=== PATIENT | female | born 1985 | race African-American/Black ===

== ENCOUNTER 2018-11-01 15:43 | Emergency (ER) | payer OTHER, SELFPAY ==
--- NOTE | 2018-11-01 16:31 | RAD REPORT ---
EXAM DESCRIPTION: CT - Head Brain Wo Cont - 11/01/2018 4:21 pm CLINICAL HISTORY: Headache, hypertension history COMPARISON: None. TECHNIQUE: Axial 5 mm thick images of the head were obtained without IV contrast. All CT scans are performed using dose optimization technique as appropriate and may include automated exposure control or mA/KV adjustment according to patient size. FINDINGS: No intracranial hemorrhage, mass, edema or shift of mid-line structures. No acute infarcti on changes seen. No abnormal extra-axial fluid collections. Ventricles are normal. Mastoid air cells and visualized portions of the paranasal sinuses are clear. No acute bony findings. IMPRESSION: Negative non-contrast CT head examination.
[2018-11-01 17:05] LABS: Absolute Lymphocytes (CBC) 1.8 K/uL (0.7-4.9); Absolute Monocytes 0.4 K/uL (0.1-1.3); Absolute Neutrophil 3.9 K/uL (1.8-8.0); Basophils % 0.6 % (0-1.3); Eosinophils % 8.4 % (0-4.4); Hematocrit 40.1 % (36.0-45.0); Lymphocytes % 27.2 % (15.3-44.8); MPV 7.9 fL (7.6-11.3); Monocytes % 6.6 % (3.3-12.3); RBC Red Blood Cell Count 4.87 M/uL (3.86-4.86)
--- NOTE | 2018-11-01 17:22 | RAD REPORT ---
EXAM DESCRIPTION: RAD - Chest Single View - 11/01/2018 4:47 pm CLINICAL HISTORY: Chest pain COMPARISON: None. TECHNIQUE: AP portable chest image was obtained 1714 hours . FINDINGS: Lungs are clear. Cardiomegaly is present without vascular engorgement. Trachea is midline. No measurable pleural effusion and no pneumothorax. No acute bony abnormality seen. No acute aortic findings suspected. IMPRESSION: Cardiomegaly without failure or volume overload findings. No acute lung parenchymal process.
[2018-11-01 17:25] LABS: ALT/SGPT 13 U/L (12-78); AST/SGOT 13 U/L (15-37); Albumin 3.9 g/dL (3.4-5.0); Alkaline Phosphatase 69 U/L (45-117); BUN Blood Urea Nitrogen 10 mg/dL (7-18); Bicarbonate 26 mmol/L (21-32); Bilirubin Direct 0.1 mg/dL (0-0.2); Bilirubin Total 0.4 mg/dL (0.2-1.0); Glucose Level 85 mg/dL (74-106); Potassium 3.8 mmol/L (3.5-5.1); Protein, Total 7.7 g/dL (6.4-8.2); Sodium Level 139 mmol/L (136-145); Troponin (Emerg Dept Use Only) < 0.02 ng/mL (0.0-0.045)
[2018-11-01 17:52] LABS: Urine Appearance CLEAR; Urine Bilirubin NEGATIVE (NEG); Urine Blood NEGATIVE (NEG); Urine Color YELLOW; Urine Glucose NEGATIVE (NEG); Urine Protein 1+ (NEG)
[2018-11-01 17:54] LABS: Urine Microscopic Reflex ORDER UMIC
[2018-11-01] MEDS ORDERED: KETOROLAC 30 MG/ML INJ ONE (18:01)
[2018-11-01] MEDS ORDERED: DIPHENHYDRAMINE 50 MG/ML VIAL ONE (18:01)
[2018-11-01] MEDS ORDERED: METOCLOPRAMIDE 10 MG/2mL INJ ONE (18:01)
[2018-11-01] MEDS ORDERED: NA CHLORIDE 0.9% 1,000 ML ONE (18:01)
[2018-11-01 18:11] LABS: Urine Bacteria 20-50 /HPF (<20); Urine RBC NONE SEEN /HPF (NONE SEEN)
[2018-11-01 18:12] LABS: Urine Culture Reflex Order REFLEXED
--- NOTE | 2018-11-01 18:22 | EDPHYS ---
Physician Documentation [facility] Name: Yahir Angel Age: 32 yrs Sex: Female : 1985 Arrival Date: 11/01/2018 Time: 15:47 Bed 16 Private MD: None, None ED Physician Roshan Davis HPI: 11/01 16:52 This 32 yrs old Black Female presents to ER via Ambulatory with complaints of Headache, pm1 High Blood Pressure, Chest Pain. 16:52 The patient complains of pain to the left side of head. The patient describes the pm1 headache as aching. Onset: The symptoms/episode began/occurred last night. Associated signs and symptoms: Pertinent positives: nausea, Pertinent negatives: altered mental status, dizziness, fever, neck stiffness, paresthesias, Photophobia rash, sinus congestion, sinus tenderness, vision changes. Severity of symptoms: in the emergency department the pain is unchanged, despite home interventions. Headache History: The patient has had previous headaches and this one is similar to previous episodes. The symptoms are alleviated by nothing. the symptoms are aggravated by Anger, stress, and elevated blood pressure. The patient has experienced similar episodes in the past, a few times. The patient has not recently seen a physician. Patient with headache and chest pain last night. Patient noticed that her blood pressure was elevated with her pain. Chest pain has improved to 2/10 and is reproduced with raising hier arms above her head. Patient currently taking labetalol for her blood pressure and it was switched from lisinopril-HCTZ due to her desire to get . 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 - Social history:: Smoking status: Patient/guardian denies using tobacco, Patient/guardian denies using alcohol. - Ebola Screening: : Patient negative for fever greater than or equal to 101.5 degrees Fahrenheit, and additional compatible Ebola Virus Disease symptoms Patient denies exposure to infectious person Patient denies travel to an Ebola-affected area in the 21 days before illness onset. ROS: 16:55 Constitutional: Negative for fever, chills, and weight loss, Eyes: Negative for injury, pm1 pain, redness, and discharge, ENT: Negative for injury, pain, and discharge, Neck: Negative for injury, pain, and swelling. 16:55 Respiratory: Negative for shortness of breath, cough, wheezing, and pleuritic chest pain, Back: Negative for injury and pain, : Negative for injury, bleeding, discharge, and swelling, MS/Extremity: Negative for injury and deformity, Skin: Negative for injury, rash, and discoloration. 16:55 Cardiovascular: Positive for chest pain, Negative for edema, orthopnea, palpitations. 16:55 Abdomen/GI: Positive for nausea, Negative for abdominal pain, vomiting, diarrhea. 16:55 Neuro: Positive for headache, Negative for dizziness, numbness, tingling. Exam: 16:55 Constitutional: This is a well developed, well nourished patient who is awake, alert, pm1 and in no acute distress. Head/Face: Normocephalic, atraumatic. Eyes: Pupils equal round and reactive to light, extra-ocular motions intact. Lids and lashes normal. Conjunctiva and sclera are non-icteric and not injected. Cornea within normal limits. Periorbital areas with no swelling, redness, or edema. ENT: Nares patent. No nasal discharge, no septal abnormalities noted. Tympanic membranes are normal and external auditory canals are clear. Oropharynx with no redness, swelling, or masses, exudates, or evidence of obstruction, uvula midline. Mucous membranes moist. Neck: Trachea midline, no thyromegaly or masses palpated, and no cervical lymphadenopathy. Supple, full range of motion without nuchal rigidity, or vertebral point tenderness. No Meningismus. Cardiovascular: Regular rate and rhythm with a normal S1 and S2. No gallops, murmurs, or rubs. Normal PMI, no JVD. No pulse deficits. Respiratory: Lungs have equal breath sounds bilaterally, clear to auscultation and percussion. No rales, rhonchi or wheezes noted. No increased work of breathing, no retractions or nasal flaring. Abdomen/GI: Soft, non-tender, with normal bowel sounds. No distension or tympany. No guarding or rebound. No evidence of tenderness throughout. Back: No spinal tenderness. No costovertebral tenderness. Full range of motion. Skin: Warm, dry with normal turgor. Normal color with no rashes, no lesions, and no evidence of cellulitis. MS/ Extremity: Pulses equal, no cyanosis. Neurovascular intact. Full, normal range of motion. 16:55 Chest/axilla: Inspection: normal, Palpation: tenderness, of the anterior aspect of left upper chest, that totally reproduces the patient's complaints, Pain also reproduced totally with moving left and right arms above her head. Vital Signs: 15:51 BP 151 / 118; Pulse 104; Resp 18; Temp 98.3(O); Pulse Ox 100% on R/A; Weight 90.72 kg; hj Height 5 ft. 4 in. (162.56 cm); Pain 2/10; 18:15 BP 172 / 122; Pulse 70; Resp 16 S; Pulse Ox 100% on R/A; jl7 19:07 BP 160 / 116; Pulse 68; Resp 16 S; Pulse Ox 99% on R/A; jl7 19:10 BP 166 / 103; Pulse 65; Resp 17; Temp 98.3; Pulse Ox 99% on R/A; Pain 0/10; rr5 19:28 BP 160 / 103; Pulse 66; Resp 17; Pulse Ox 99% ; rr5 15:51 Body Mass Index 34.33 (90.72 kg, 162.56 cm) hj 19:28 BP informed.ED provider ordered for discharge. rr5 MDM: 15:59 Patient medically screened. pm1 18:18 Data reviewed: vital signs. Data interpreted: Pulse oximetry: on room air is 100 %. pm1 Interpretation: normal. Counseling: I had a detailed discussion with the patient and/or guardian regarding: the historical points, exam findings, and any diagnostic results supporting the discharge/admit diagnosis, lab results, radiology results, the need for outpatient follow up, to return to the emergency department if symptoms worsen or persist or if there are any questions or concerns that arise at home. 18:18 ED course: Patient with 5 pills of her blood pressure medication remaining without pm1 refills. Requested refill. Will refill and informed patient to follow u with PCP for further management of hypertension. 18:18 Medication response: headache resolved. pm1 11/01 16:09 Order name: Basic Metabolic Panel; Complete Time: 17:26 pm1 11/01 16:09 Order name: CBC with Diff; Complete Time: 17:35 pm1 11/01 16:09 Order name: LFT's; Complete Time: 17:26 pm1 11/01 16:09 Order name: Troponin (emerg Dept Use Only); Complete Time: 17:26 pm1 11/01 17:40 Order name: UA; Complete Time: 18:15 jl7 11/01 17:52 Order name: Test, Urine; Complete Time: 18:15 EDMS 11/01 16:09 Order name: XRAY Chest (1 view); Complete Time: 17:26 pm1 11/01 16:09 Order name: CT Head Brain wo Cont; Complete Time: 16:44 pm1 11/01 17:56 Order name: Urine Microscopic Only; Complete Time: 18:15 EDMS 11/01 18:14 Order name: Urine Culture EDMS 11/01 15:53 Order name: EKG; Complete Time: 15:54 hj 11/01 16:09 Order name: Cardiac monitoring; Complete Time: 17:37 pm1 11/01 16:09 Order name: IV Saline Lock; Complete Time: 17:36 pm1 11/01 16:09 Order name: Labs collected and sent; Complete Time: 17:36 pm1 11/01 16:09 Order name: O2 Per Protocol; Complete Time: 17:36 pm1 11/01 16:09 Order name: O2 Sat Monitoring; Complete Time: 17:36 pm1 11/01 16:09 Order name: Urine Dipstick-Ancillary (obtain specimen); Complete Time: 18:30 pm1 11/01 16:09 Order name: Urine Test (obtain specimen); Complete Time: 18:29 pm1 Administered Medications: 07:45 Drug: NS 0.9% 1000 ml Route: IV; Rate: 1000 ml; Site: right antecubital; jl7 19:30 Follow up: Response: No adverse reaction; IV Status: Order to discontinue infusion rr5 17:47 Drug: Benadryl 25 mg Route: IVP; Site: right antecubital; jl7 18:29 Follow up: Response: No adverse reaction jl7 17:49 Drug: Reglan 10 mg Route: IVP; Site: right antecubital; jl7 18:29 Follow up: Response: No adverse reaction 7 17:55 Drug: TORadol 30 mg Route: IVP; Site: right antecubital; 7 18:25 Follow up: Response: No adverse reaction; Pain is decreased 7 Disposition: 11/02 09:39 Co-signature as Attending Physician, Roshan Davis MD I agree with the assessment and kdr plan of care. Disposition: 11/01/18 18:22 Discharged to Home. Impression: Headache, Essential (primary) hypertension, Chest pain, unspecified. - Condition is Stable. - Discharge Instructions: Nonspecific Chest Pain, General Headache Without Cause, Hypertension, How to Take Your Blood Pressure, [id number], DASH Eating Plan, Managing Your Hypertension. - Prescriptions for labetalol 200 mg Oral tablet - take 1 tablet by ORAL route 2 times per day; 20 tablet. - Medication Reconciliation Form, Thank You Letter, Antibiotic Education, Prescription Opioid Use form. - Follow up: Emergency Department; When: As needed; Reason: Worsening of condition. Follow up: Private Physician; When: 2 - 3 days; Reason: Recheck today's complaints, Continuance of care, Re-evaluation by your physician. - Problem is new. - Symptoms have improved. Signatures: Dispatcher [employer] EDMS Roshan Davis MD MD [facility] Luis Murry RN RN hj Neo Singh NP MARTIAL ARTS INSTRUCTOR pm1 Weston Matta RN RN jl7 Jef Love RN RN rr5 Corrections: (The following items were deleted from the chart) 11/01 19:40 18:22 11/01/2018 18:22 Discharged to Home. Impression: Headache; Essential (primary) rr5 hypertension; Chest pain, unspecified. Condition is Stable. Forms are Medication Reconciliation Form, Thank You Letter, Antibiotic Education, Prescription Opioid Use. Follow up: Emergency Department; When: As needed; Reason: Worsening of condition. Follow up: Private Physician; When: 2 - 3 days; Reason: Recheck today's complaints, Continuance of care, Re-evaluation by your physician. Problem is new. Symptoms have improved. pm1
--- NOTE | 2018-11-01 18:22 | ER ---
Nurse's Notes [facility] Name: Yahir Angel Age: 32 yrs Sex: Female : 1985 Arrival Date: 11/01/2018 Time: 15:47 Bed 16 Private MD: None, None Diagnosis: Headache;Essential (primary) hypertension;Chest pain, unspecified Presentation: 11/01 15:48 Presenting complaint: Patient states: my head is killing me right now, my chest is hj hurting last night; denies radiating pain; pain in head 10/10; reports nausea, denies vomiting; denies SOB;. Transition of care: patient was not received from another setting of care. Onset of symptoms was November 01, 2018. Risk Assessment: Do you want to hurt yourself or someone else? Patient reports no desire to harm self or others. Initial Sepsis Screen: Does the patient meet any 2 criteria? No. Patient's initial sepsis screen is negative. Does the patient have a suspected source of infection? No. Patient's initial sepsis screen is negative. Care prior to arrival: None. 15:48 Method Of Arrival: Ambulatory 15:48 Acuity: CHRISTIN 3 hj Triage Assessment: 15:51 Headache History: Denies prior headaches. General: Appears in no apparent distress. hj uncomfortable, Behavior is calm, cooperative, appropriate for age. Pain: Complains of pain in head. chest Pain currently is 2 out of 10 on a pain scale. Pain began 1 day ago. Also complains of. Neuro: Level of Consciousness is awake, alert, obeys commands, Oriented to person, place, time, situation, Appropriate for age. 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 - Social history:: Smoking status: Patient/guardian denies using tobacco, Patient/guardian denies using alcohol. - Ebola Screening: : Patient negative for fever greater than or equal to 101.5 degrees Fahrenheit, and additional compatible Ebola Virus Disease symptoms Patient denies exposure to infectious person Patient denies travel to an Ebola-affected area in the 21 days before illness onset. Screenin:51 Abuse screen: Denies threats or abuse. Denies injuries from another. Nutritional hj screening: No deficits noted. Tuberculosis screening: No symptoms or risk factors identified. Fall Risk None identified. Assessment: 17:00 General: Appears in no apparent distress. uncomfortable, Behavior is calm, cooperative, jl7 appropriate for age. Pain: Complains of pain in left side of head Pain currently is 8 out of 10 on a pain scale. Is continuous. Neuro: Level of Consciousness is awake, alert, obeys commands, Oriented to person, place, time, situation. Cardiovascular: Heart tones S1 S2 present Patient's skin is warm and dry. Respiratory: Airway is patent Respiratory effort is even, unlabored, Respiratory pattern is regular, symmetrical. GI: No signs and/or symptoms were reported involving the gastrointestinal system. : No signs and/or symptoms were reported regarding the genitourinary system. EENT: No signs and/or symptoms were reported regarding the EENT system. Derm: Skin is dry, Skin is normal, Skin temperature is warm. 18:00 Reassessment: Patient appears in no apparent distress at this time. No changes from jl7 previously documented assessment. Patient and/or family updated on plan of care and expected duration. Pain level reassessed. Patient is alert, oriented x 3, equal unlabored respirations, skin warm/dry/pink. 18:26 Reassessment: Patient states feeling better. Patient states symptoms have improved. jl7 18:30 Reassessment: Reassessment: ERP notified of BP, ordered for pt to take home BP jl7 medication. Pt took 200 mg Labetalol PO at this time. 19:10 Reassessment: ERP notified of BP, ordered to continue monitoring pt's BP. jl7 19:11 General: Appears in no apparent distress. uncomfortable, Behavior is calm, cooperative, rr5 appropriate for age. Pain: Denies pain. 19:11 Neuro: Level of Consciousness is awake, alert, obeys commands, Oriented to person, rr5 place, time, situation. Cardiovascular: Capillary refill < 3 seconds Patient's skin is warm and dry. Respiratory: Airway is patent Respiratory effort is even, unlabored, Respiratory pattern is regular, symmetrical. GI: No signs and/or symptoms were reported involving the gastrointestinal system. : No signs and/or symptoms were reported regarding the genitourinary system. EENT: No signs and/or symptoms were reported regarding the EENT system. Derm: Skin is dry, Skin is pink, warm \T\ dry. normal. Musculoskeletal: Capillary refill < 3 seconds, Range of motion: intact in all extremities. Vital Signs: 15:51 BP 151 / 118; Pulse 104; Resp 18; Temp 98.3(O); Pulse Ox 100% on R/A; Weight 90.72 kg; hj Height 5 ft. 4 in. (162.56 cm); Pain 2/10; 18:15 BP 172 / 122; Pulse 70; Resp 16 S; Pulse Ox 100% on R/A; jl7 19:07 BP 160 / 116; Pulse 68; Resp 16 S; Pulse Ox 99% on R/A; jl7 19:10 BP 166 / 103; Pulse 65; Resp 17; Temp 98.3; Pulse Ox 99% on R/A; Pain 0/10; rr5 19:28 BP 160 / 103; Pulse 66; Resp 17; Pulse Ox 99% ; rr5 15:51 Body Mass Index 34.33 (90.72 kg, 162.56 cm) hj 19:28 BP informed.ED provider ordered for discharge. rr5 ED Course: 15:47 Patient arrived in ED. mr 15:47 None, None is Private Physician. mr 15:50 Triage completed. hj 15:51 Arm band placed on left wrist. hj 15:54 Patient has correct armband on for positive identification. Placed in gown. Bed in low hj position. Call light in reach. Side rails up X 1. Adult w/ patient. 15:59 Neo Singh NP is PHCP. pm1 15:59 Roshan Davis MD is Attending Physician. pm1 16:08 EKG done, by communications technologist. reviewed by Roshan Davis MD. sm3 16:[address] via wheelchair. jg6 16:20 CT completed. Patient tolerated procedure well. Patient moved back from CT. jg6 16:21 CT Head Brain wo Cont In Process Unspecified. EDMS 16:47 XRAY Chest (1 view) In Process Unspecified. EDMS 17:00 No provider procedures requiring assistance completed. Initial lab(s) drawn, by carli zapata sent to lab. Inserted saline lock: 22 gauge in right antecubital area, using aseptic technique. Blood collected. 17:36 Weston Matta RN is Primary Nurse. jl7 19:11 Primary Nurse role handed off by Weston Matta RN jl7 19:19 Jef Love, PEGGY is Primary Nurse. rr5 19:29 IV discontinued, intact, bleeding controlled, No redness/swelling at site. Pressure rr5 dressing applied. Administered Medications: 07:45 Drug: NS 0.9% 1000 ml Route: IV; Rate: 1000 ml; Site: right antecubital; jl7 19:30 Follow up: Response: No adverse reaction; IV Status: Order to discontinue infusion rr5 17:47 Drug: Benadryl 25 mg Route: IVP; Site: right antecubital; jl7 18:29 Follow up: Response: No adverse reaction jl7 17:49 Drug: Reglan 10 mg Route: IVP; Site: right antecubital; jl7 18:29 Follow up: Response: No adverse reaction jl7 17:55 Drug: TORadol 30 mg Route: IVP; Site: right antecubital; jl7 18:25 Follow up: Response: No adverse reaction; Pain is decreased jl7 Outcome: 18:22 Discharge ordered by MD. pm1 19:29 Discharged to home ambulatory. rr5 19:29 Condition: stable 19:29 Discharge instructions given to patient, Instructed on discharge instructions, follow up and referral plans. medication usage, Demonstrated understanding of instructions, follow-up care, medications. 19:40 Patient left the ED. rr5 Addendum: 11/04/2018 08:36 Addendum: Culture Results: Positive urine culture. No further action required. Other: s s Okay per Gabrielle Britton NP as patient has no urinary complaints. Signatures: Dispatcher [employer] [facility] Sis Perez Vanda Lowe, Luis Beck RN, RN RN hj Marinas, Patrick, BUDDY DIRECTOR OF FUNDRAISING pm1 Weston Matta RN RN jl7 Anny White 3 Gisel Davila 6 Jef Love, RN RN rr5 Corrections: (The following items were deleted from the chart) 11/01 15:53 15:51 Pulse 104bpm; Resp 18bpm; Pulse Ox 100% RA; Temp 98.3F Oral; 90.72 kg; Height 5 hj ft. 4 in.; BMI: 34.3; Pain /10; hj 15:54 15:51 Pulse 104bpm; Resp 18bpm; Pulse Ox 100% RA; Temp 98.3F Oral; 90.72 kg; Height 5 hj ft. 4 in.; BMI: 34.3; Pain 12/17; hj
[2018-11-01] MEDS ORDERED: cloNIDine HCl 0.1 MG TAB ONE (18:32)
--- NOTE | 2018-11-02 06:29 | EKG ---
Test Date: 2018-11-01 Test Time: 15:53:44 Wrapping Machine Operator: JUDIE MEASUREMENT RESULTS: Intervals: Rate: 90 [place]: 134 QRSD: 92 QT: 342 QTc: 418 [place]: P: 59 [place]: 134 QRS: 57 T: 31 INTERPRETIVE STATEMENTS: Normal sinus rhythm Biatrial enlargement Abnormal ECG No previous ECG available for comparison Electronically Signed On 11-02-18 06:28:31 CARTRIDGE LOADER by Obdulio Mcclellan
== END 2018-11-01 19:40 | disposition home or self-care (01) ==
LOC: ER 15:43
DX: I10 Essential (primary) hypertension (principal); R07.9 Chest pain, unspecified; E78.5 Hyperlipidemia, unspecified
CPT/HCPCS: 36415; 70450; 71045; 80048; 80076; 81003; 81015; 81025; 84484; 85025; 87077; 87086; 87088; 87186; 93005; 96361; 96374; 96375; 99284; J2765; J7030

== ENCOUNTER 2022-10-20 07:26 | Emergency (ER) | payer OTHER, SELFPAY ==
--- OUTSIDE RECORDS SUMMARY | 2022-10-20 07:29 | XMS REPORT | Continuity of Care Document ---
:1985 Author Organization [facility] t Address [address] [place] [address] Care Team Providers Name Role Phone PCP, PATIENT DOES NOT HAVE A Primary Care Physician Unavaila DENEEN Rosa Attending Clinician Unavailable AMIRAH PEREIRA Attending Clinician Unavailable Payers Payer Name Policy Type Policy Number Effective Date Expiration Date S jorge CIG[employer]-CIGNA/PPO 2 [id number] 2021 00:00:00 Problems This patient has no known problems. Allergies, Adverse Reactions, Alerts Allergy Allergy Status Severity Reaction(s) Onset Inactive Treating Comm ents Source Name Type Date Date Clinician NO KNOWN Drug Active [facility] Medications This patient has no known medications. Procedures This patient has no known procedures. Encounters Start End Encounter Admission Attending Care Care Encounter Source Date/Time Date/Time Type Type Clinicians Facility Department ID 2022-11-09 2022-11-09 Outpatient Erin SMITH [facility] [id number] [facility] 09:00:00 09:00:00 DENEEN ceballos [facility] 2021-08-06 2021-08-06 Outpatient MARCIO PEREIRA [id number] [place] 11:30:00 11:30:00 AMIRAH nava 2021-07-31 2021-07-31 Outpatient MARCIO PEREIRA [id number] [place] 11:30:00 11:30:00 AMIRAH nava Results This patient has no known results.
[2022-10-20 08:01] LABS: Urine Blood Trace-lysed (Negative); Urine Glucose Negative (Negative); Urine Protein Negative (Negative); Urine pH 5.5 (5.0-7.0)
[2022-10-20 08:38] LABS: Absolute Lymphocytes (CBC) 2.3 K/uL (0.7-4.9); Hematocrit 38.9 % (36.0-45.0); Lymphocytes % 36.1 % (15.3-44.8); MCV 82.4 fL (80-100); MPV 7.7 fL (7.6-11.3); RBC Red Blood Cell Count 4.72 M/uL (3.86-4.86)
[2022-10-20] MEDS ORDERED: AMLODIPINE 5 MG TAB ONE (08:39)
[2022-10-20 08:44] LABS: Protime INR 0.99
--- NOTE | 2022-10-20 08:47 | RAD REPORT ---
EXAM DESCRIPTION: RAD - Chest Single View - 10/20/2022 8:05 am CLINICAL HISTORY: Cough Chest pain. COMPARISON: Chest Single View dated 11/01/2018 FINDINGS: Portable technique limits examination quality. The lungs are grossly clear. The heart is upper limit of normal in size. No displaced fractures. IMPRESSION: No acute intrathoracic process suspected.
[2022-10-20 08:57] LABS: ALT/SGPT 17 U/L (13-56); AST/SGOT 16 U/L (15-37); Albumin 3.8 g/dL (3.4-5.0); Alkaline Phosphatase 79 U/L (45-117); BUN Blood Urea Nitrogen 10 mg/dL (7-18); Bicarbonate 28 mmol/L (21-32); Bilirubin Direct < 0.1 mg/dL (0-0.2); Bilirubin Total 0.2 mg/dL (0.2-1.0); Glomerular Filtration Rate 85 ml/min (=/>90); Glucose Level 100 mg/dL (74-106); Magnesium 1.9 mg/dL (1.6-2.4); NT PRO-BNP 23 pg/mL (<125); Potassium 3.6 mmol/L (3.5-5.1); Protein, Total 7.9 g/dL (6.4-8.2); Sodium Level 137 mmol/L (136-145); Troponin High Sensitivity 6.7 pg/mL (<58.9)
--- NOTE | 2022-10-20 09:08 | EDPHYS ---
Physician Documentation [facility] – [place], [place] Name: Yahir Angel Age: 36 yrs Sex: Female : 1985 Arrival Date: 10/20/2022 Time: 07:27 Bed 16 Private MD: KAILA Physician Bill Santamaria HPI: 10/20 08:40 This 36 yrs old Black Female presents to ER via Ambulatory with complaints of Blood thony Pressure Problem. 08:40 bp high, taking meds sporadically. Onset: The symptoms/episode began/occurred 2 week(s) thony ago. Severity of symptoms: At their worst the symptoms were mild in the emergency department the symptoms are unchanged. The patient has not experienced similar symptoms in the past. 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 - Social history:: Smoking status: Reported history of juuling and/or vaping. ROS: 08:43 Constitutional: Negative for fever, chills, and weight loss, Eyes: Negative for injury, thony pain, redness, and discharge, ENT: Negative for injury, pain, and discharge, Neck: Negative for injury, pain, and swelling, Cardiovascular: Negative for chest pain, palpitations, and edema, Respiratory: Negative for shortness of breath, cough, wheezing, and pleuritic chest pain, Abdomen/GI: Negative for abdominal pain, nausea, vomiting, diarrhea, and constipation, Back: Negative for injury and pain, : Negative for injury, bleeding, discharge, and swelling, MS/Extremity: Negative for injury and deformity, Skin: Negative for injury, rash, and discoloration, Neuro: Negative for headache, weakness, numbness, tingling, and seizure, Psych: Negative for depression, anxiety, suicide ideation, homicidal ideation, and hallucinations, Allergy/Immunology: Negative for hives, rash, and allergies, Endocrine: Negative for neck swelling, polydipsia, polyuria, polyphagia, and marked weight changes, Hematologic/Lymphatic: Negative for swollen nodes, abnormal bleeding, and unusual bruising. Exam: 08:43 Constitutional: This is a well developed, well nourished patient who is awake, alert, thony and in no acute distress. Head/Face: Normocephalic, atraumatic. Eyes: Pupils equal round and reactive to light, extra-ocular motions intact. Lids and lashes normal. Conjunctiva and sclera are non-icteric and not injected. Cornea within normal limits. Periorbital areas with no swelling, redness, or edema. ENT: Nares patent. No nasal discharge, no septal abnormalities noted. Tympanic membranes are normal and external auditory canals are clear. Oropharynx with no redness, swelling, or masses, exudates, or evidence of obstruction, uvula midline. Mucous membranes moist. Neck: Trachea midline, no thyromegaly or masses palpated, and no cervical lymphadenopathy. Supple, full range of motion without nuchal rigidity, or vertebral point tenderness. No Meningismus. Chest/axilla: Normal chest wall appearance and motion. Nontender with no deformity. No lesions are appreciated. Cardiovascular: Regular rate and rhythm with a normal S1 and S2. No gallops, murmurs, or rubs. Normal PMI, no JVD. No pulse deficits. Respiratory: Lungs have equal breath sounds bilaterally, clear to auscultation and percussion. No rales, rhonchi or wheezes noted. No increased work of breathing, no retractions or nasal flaring. Abdomen/GI: Soft, non-tender, with normal bowel sounds. No distension or tympany. No guarding or rebound. No evidence of tenderness throughout. Back: No spinal tenderness. No costovertebral tenderness. Full range of motion. Skin: Warm, dry with normal turgor. Normal color with no rashes, no lesions, and no evidence of cellulitis. MS/ Extremity: Pulses equal, no cyanosis. Neurovascular intact. Full, normal range of motion. Neuro: Awake and alert, GCS 15, oriented to person, place, time, and situation. Cranial nerves II-XII grossly intact. Motor strength 5/5 in all extremities. Sensory grossly intact. Cerebellar exam normal. Normal gait. Psych: Awake, alert, with orientation to person, place and time. Behavior, mood, and affect are within normal limits. 08:43 ECG was reviewed by the Attending Physician. Vital Signs: 07:41 BP 183 / 129; Pulse 66; Resp 16; Temp 98.6(O); Pulse Ox 100% on R/A; Weight 99.79 kg; ss Height 5 ft. 4 in. (162.56 cm); 08:59 BP 175 / 104 RA; Pulse 65; Resp 17; Pulse Ox 100% on R/A; ap3 09:24 BP 169 / 102; Pulse 67; Pulse Ox 100% on R/A; ap3 07:41 Body Mass Index 37.76 (99.79 kg, 162.56 cm) ss MDM: 07:40 Patient medically screened. [facility] 08:45 Data reviewed: vital signs, nurses notes, EMS record, lab test result(s), EKG, thony radiologic studies, plain films. Data interpreted: sulfide head operator: rate is 66 beats/min, rhythm is regular, Pulse oximetry: on room air is 100 %. Test interpretation: by ED physician or midlevel provider: ECG, plain radiologic studies. 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 10/20 07:46 Order name: Basic Metabolic Panel; Complete Time: 08:59 [facility] 10/20 07:46 Order name: CBC with Diff; Complete Time: 08:59 [facility] 10/20 07:46 Order name: LFT's; Complete Time: 08:59 [facility] 10/20 07:46 Order name: Magnesium; Complete Time: 08:59 [facility] 10/20 07:46 Order name: NT PRO-BNP; Complete Time: 08:59 [facility] 10/20 07:46 Order name: PT-INR; Complete Time: 08:59 [facility] 10/20 07:46 Order name: Troponin HS; Complete Time: 08:59 [facility] 10/20 07:46 Order name: XRAY Chest (1 view); Complete Time: 08:59 [facility] 10/20 07:46 Order name: EKG; Complete Time: 07:47 [facility] 10/20 07:46 Order name: Cardiac monitoring; Complete Time: 08:43 [facility] 10/20 08:02 Order name: Urine Dipstick-Ancillary; Complete Time: 08:59 EDMS 10/20 08:04 Order name: Urine --Ancillary (enter results) bd 10/20 07:46 Order name: EKG - Nurse/Tech; Complete Time: 07:55 [facility] 10/20 07:46 Order name: IV Saline Lock; Complete Time: 08:43 [facility] 10/20 07:46 Order name: Labs collected and sent; Complete Time: 08:43 [facility] 10/20 07:46 Order name: O2 Per Protocol; Complete Time: 08:43 [facility] 10/20 07:46 Order name: O2 Sat Monitoring; Complete Time: 08:43 [facility] 10/20 07:46 Order name: Urine Dipstick-Ancillary (obtain specimen); Complete Time: 08:04 thony EC:43 Rate is 30 beats/min. Rhythm is regular. QRS [place] is Normal. [place] interval is normal. QRS thony interval is normal. QT interval is normal. No Q waves. T waves are Normal. No ST changes noted. Clinical impression: NSR w/ Non-specific ST/T Changes, LVH, and No evidence of ischemia. Interpreted by me. Reviewed by me. Administered Medications: 09:05 Drug: Norvasc (amlodipine) 5 mg Route: PO; ap3 09:24 Follow up: Response: No adverse reaction ap3 09:24 Drug: Hydrochlorothiazide 25 mg Route: PO; ap3 09:37 Follow up: Response: No adverse reaction ap3 Disposition Summary: 10/20/22 09:07 Discharge Ordered Location: Home thony Problem: new thony Symptoms: have improved thony Condition: Stable thony Diagnosis - Essential (primary) hypertension thony Followup: thony - With: Private Physician - When: 2 - 3 days - Reason: Recheck today's complaints, Re-evaluation by your physician Followup: thony - With: - When: 2 - 3 days - Reason: Recheck today's complaints, Continuance of care, Re-evaluation by your physician Discharge Instructions: - Discharge Summary Sheet thony - Potassium Content of Foods thony - Hypertension, Adult thony - Hypertension, Adult, [id number] thony - How to Take Your Blood Pressure, [id number] thony - Managing Your Hypertension thony Forms: - Medication Reconciliation Form thony - Thank You Letter thony - Antibiotic Education thony - Prescription Opioid Use thony - Work release form am2 Prescriptions: - Norvasc 10 mg Oral Tablet - take 1 tablet by ORAL route once daily; 30 tablet; Refills: 0, Product thony Selection Permitted - Lisinopril 20 mg Oral Tablet - take 1 tablet by ORAL route once daily; 20 tablet; Refills: 0, Product thony Selection Permitted - Hydrochlorothiazide 12.5 mg Oral Tablet - take 1 tablet by ORAL route once daily; 30 tablet; Refills: 0, Product thony Selection Permitted - Potassium Chloride 20 meq Oral Packet - take 1 packet by ORAL route once daily 1 packet in 6 (six) ounces of water or thony juice; Take after meal; 30 packet; Refills: 0, Product Selection Permitted Signatures: Dispatcher [employer] Bill Waddell MD MD cha Smirch, Shelby, RN RN ss Beverly Case RN RN ap3
--- NOTE | 2022-10-20 09:08 | ER ---
Nurse's Notes [facility] Name: Yahir Angel Age: 36 yrs Sex: Female : 1985 Arrival Date: 10/20/2022 Time: 07:27 Bed 16 Private MD: Diagnosis: Essential (primary) hypertension Presentation: 10/20 07:41 Chief complaint: Patient states: High blood pressure that patient noticed yesterday. Pt ss reports that she takes 3 different blood pressure medications, but it does not seem to be helping. Coronavirus screen: Client denies travel out of the [place] in the last 14 days. Ebola Screen: Patient denies exposure to infectious person. Patient denies travel to an Ebola-affected area in the 21 days before illness onset. Initial Sepsis Screen: Does the patient meet any 2 criteria? No. Patient's initial sepsis screen is negative. Does the patient have a suspected source of infection? No. Patient's initial sepsis screen is negative. Risk Assessment: Do you want to hurt yourself or someone else? Patient reports no desire to harm self or others. Onset of symptoms is unknown. 07:41 Method Of Arrival: Ambulatory ss 07:41 Acuity: CHRISTIN 2 ss Triage Assessment: 09:04 General: Appears in no apparent distress. Behavior is calm, cooperative. General: ap3 Reports feeling "off" the last few days. Pain: Denies pain. Neuro: Level of Consciousness is awake, alert, obeys commands, Oriented to person, place, time, situation, Gait is steady, Speech is normal. Cardiovascular: Patient's skin is warm and dry. Respiratory: Airway is patent Respiratory effort is even, unlabored, Respiratory pattern is regular, symmetrical. 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 - Social history:: Smoking status: Reported history of juuling and/or vaping. Screenin:04 [facility] ED Fall Risk Assessment (Adult) History of falling in the last 3 months, ap3 including since admission No falls in past 3 months (0 pts) Confusion or Disorientation No (0 pts) Intoxicated or Sedated No (0 pts) Impaired Gait No (0 pts) Mobility Assist Device Used No (0 pt) Altered Elimination No (0 pt) Score/Fall Risk Level 0 - 2 = Low Risk Oriented to surroundings, Maintained a safe environment, Educated pt \\T\\ family on fall prevention, incl call for assistance when getting out of bed, Assessed \\T\\ reinforced patient's understanding of fall precautions, Provided non-skid footwear, Hourly rounding (assess needs \\T\\ fall precautionary measures) done, Used ambulatory aids as needed (educated on \\T\\ assisted with). Abuse screen: Denies threats or abuse. Nutritional screening: No deficits noted. Tuberculosis screening: No symptoms or risk factors identified. Fall Risk No fall in past 12 months (0 pts). 09:07 Humpty Dumpty Scale Fall Assessment Tool (age< 18yrs) Age 13 years and above (1 pt) ap3 Gender Female (1 pt). Vital Signs: 07:41 BP 183 / 129; Pulse 66; Resp 16; Temp 98.6(O); Pulse Ox 100% on R/A; Weight 99.79 kg; ss Height 5 ft. 4 in. (162.56 cm); 08:59 BP 175 / 104 RA; Pulse 65; Resp 17; Pulse Ox 100% on R/A; ap3 09:24 BP 169 / 102; Pulse 67; Pulse Ox 100% on R/A; ap3 07:41 Body Mass Index 37.76 (99.79 kg, 162.56 cm) ED Course: 07:27 Patient arrived in ED. am2 07:40 Bill Santamaria MD is Attending Physician. [facility] 07:43 Triage completed. 07:43 Arm band placed on right wrist. 07:55 EKG done, by ED staff, reviewed by Bill Santamaria MD. em1 08:05 X-ray completed. Portable x-ray completed in exam room. md2 08:06 XRAY Chest (1 view) In Process Unspecified. EDMS 08:43 Inserted saline lock: 20 gauge in left antecubital area, using aseptic technique. Blood ap3 collected. 08:59 Beverly Case, RN is Primary Nurse. ap3 09:05 Patient has correct armband on for positive identification. Bed in low position. Call ap3 light in reach. Side rails up X 1. Adult w/ patient. personnel monitor on. Pulse ox on. NIBP on. Door closed. Noise minimized. 09:07 Melvin Price MD is Referral Physician. [facility] 09:49 No provider procedures requiring assistance completed. IV discontinued, intact, ap3 bleeding controlled, No redness/swelling at site. Pressure dressing applied. Administered Medications: 09:05 Drug: Norvasc (amlodipine) 5 mg Route: PO; ap3 09:24 Follow up: Response: No adverse reaction ap3 09:24 Drug: Hydrochlorothiazide 25 mg Route: PO; ap3 09:37 Follow up: Response: No adverse reaction ap3 Medication: 09:06 VIS not applicable for this client. ap3 Outcome: 09:07 Discharge ordered by . [facility] 09:49 Discharged to home ambulatory. ap3 09:49 Condition: good 09:49 Discharge instructions given to patient, Instructed on discharge instructions, follow up and referral plans. medication usage, Demonstrated understanding of instructions, follow-up care, medications, Prescriptions given X 4. 09:54 Patient left the ED. ap3 Signatures: Dispatcher [employer] EDBill Jones MD MD cha Martinez, Eric em1 Vanda Avitia RN RN ss Moreno, Amanda am2 Beverly Case RN RN ap3 Jil Mccain md2
[2022-10-20] MEDS ORDERED: hydroCHLOROthiazide 25 MG TAB ONE (09:15)
[2022-10-20 10:20] VITALS: TEMP 98.6; O2SAT 100
[2022-10-20 10:22] VITALS: BP 169/102
--- NOTE | 2022-10-21 08:06 | EKG ---
Test Date: 2022-10-20 Test Time: 07:52:59 Sliver Cutter: BERNICE MEASUREMENT RESULTS: Intervals: Rate: 60 DE: 148 QRSD: 90 QT: 392 QTc: 392 [place]: P: 45 DE: 148 QRS: 25 T: 34 INTERPRETIVE STATEMENTS: Normal sinus rhythm Minimal voltage criteria for LVH, may be normal variant Borderline ECG No previous ECG available for comparison Electronically Signed On 10-21-22 08:02:04 BLANKBOOK FORWARDER by Melvin Price
== END 2022-10-20 09:54 | disposition home or self-care (01) ==
LOC: ER 07:26
DX: I10 Essential (primary) hypertension (principal); E78.5 Hyperlipidemia, unspecified
CPT/HCPCS: 36415; 71045; 80048; 80076; 81003; 81025; 83735; 83880; 84484; 85025; 85610; 93005; 99284

== ENCOUNTER 2024-06-26 08:09 | Inpatient (IN) | payer OTHER ==
[2024-06-26 08:37] LABS: Absolute Basophils 0.1 K/uL (0-0.5); Absolute Eosinophils 0.7 K/uL (0-0.5); Absolute Lymphocytes (CBC) 2.7 K/uL (0.7-4.9); Absolute Monocytes 0.4 K/uL (0.1-1.3); Absolute Neutrophil 3.9 K/uL (1.8-8.0); Basophils % 0.9 % (0-1.3); Eosinophils % 8.4 % (0-4.4); Hematocrit 41.6 % (36.0-45.0); Hemoglobin 13.7 g/dL (12.0-15.0); Lymphocytes % 34.9 % (15.3-44.8); MCH 27.4 pg (27.0-35.0); MCHC 32.9 g/dL (32.0-36.0); MCV 83.4 fL (80-100); MPV 7.5 fL (7.6-11.3); Monocytes % 5.6 % (3.3-12.3); Neutrophils % 50.2 % (41.7-73.7); Nucleated Red Blood Cells % 0.2 % (0-0); Platelets 347 thou/uL (152-406); RBC Red Blood Cell Count 4.98 M/uL (3.86-4.86); Red Cell Distribution Width 14.3 % (12.1-15.2)
[2024-06-26 08:53] LABS: Specific Gravity 1.009 (1.005-1.030)
[2024-06-26 08:55] LABS: Specific Gravity 1.009 (1.005-1.030); Sqamous Epithelial None Seen /HPF (None Seen); Urine Bacteria None Seen /HPF (<20); Urine Bilirubin NEGATIVE (Negative); Urine Blood Negative (Negative); Urine Clarity Clear (Clear); Urine Color Colorless (Yellow); Urine Culture Reflex Order NOT NEEDED; Urine Glucose NEGATIVE (Negative); Urine Ketones NEGATIVE (Negative); Urine Microscopic Reflex YN ORDER UMIC; Urine Mucus Slight /HPF (None Seen); Urine Nitrite NEGATIVE (Negative); Urine Protein NEGATIVE (Negative); Urine RBC <5 /HPF (None Seen); Urine Urobilinogen Normal (Normal); Urine WBC <5 /HPF (<5); Urine pH 7.5 (5.0-7.0)
[2024-06-26 09:03] LABS: ALT/SGPT 18 U/L (13-56); AST/SGOT 19 U/L (15-37); Albumin 3.9 g/dL (3.4-5.0); Albumin/Globulin Ratio 0.9 (1.1-1.8); Alkaline Phosphatase 85 U/L (45-117); Anion Gap 8.5 mEq/L (5.0-15.0); BUN Blood Urea Nitrogen 11 mg/dL (7-18); Bicarbonate 26 mEq/L (21-32); Bilirubin Total 0.4 mg/dL (0.2-1.0); Globulin 4.3 g/dL (2.3-3.5); Glomerular Filtration Rate 60 ml/min (=/>90); Glucose Level 105 mg/dL (74-106); NT PRO-BNP 120 pg/mL (<125); Potassium 3.5 mEq/L (3.5-5.1); Protein, Total 8.2 g/dL (6.4-8.2); Sodium Level 138 mEq/L (136-145); Troponin High Sensitivity 9.4 pg/mL (<58.9)
[2024-06-26] MEDS ORDERED: cloNIDine HCL 0.1 MG TAB ONE (09:04)
[2024-06-26 09:05] LABS: Bilirubin Direct < 0.2 mg/dL (0-0.2); Bilirubin Indirect, Calculated 0.2 mg/dL (0.2-0.8)
--- NOTE | 2024-06-26 09:09 | RAD REPORT ---
EXAM DESCRIPTION: RAD - Chest Single View - 06/26/2024 8:57 am CLINICAL HISTORY: CHEST PAIN Chest pain. COMPARISON: Chest Single View dated 10/20/2022; Chest Single View dated 11/01/2018 FINDINGS: Portable technique limits examination quality. The lungs are grossly clear. The heart is upper limit of normal in size. No displaced fractures. IMPRESSION: No acute intrathoracic process suspected.
--- NOTE | 2024-06-26 09:24 | RAD REPORT ---
EXAM DESCRIPTION: CT - Head Brain Wo Cont - 06/26/2024 9:12 am CLINICAL HISTORY: headache, HTN COMPARISON: Head Brain Wo Cont dated 11/01/2018 TECHNIQUE: All CT scans are performed using dose optimization technique as appropriate and may inclu de automated exposure control or mA/KV adjustment according to patient size. FINDINGS: No intracranial hemorrhage, hydrocephalus or extra-axial fluid collection.No areas of brai n edema or evidence of midline shift. The paranasal sinuses and mastoids are clear. The calvarium is intact. IMPRESSION: No acute intracranial abnormality.
--- NOTE | 2024-06-26 11:14 | ER ---
Nurse's Notes [facility] Name: Yahir Angel Age: 38 yrs Sex: Female : 1985 Arrival Date: 06/26/2024 Time: 08:09 Bed 3 Private MD: Diagnosis: Hypertensive emergency;Dizziness and giddiness Presentation: 06/26 08:28 Chief complaint: Patient states: Elevated BP, CONTRERAS, chest pressure all weekend. + ll1 dizziness. Coronavirus screen: Client denies travel out of the [place] in the last 14 days. At this time, the client does not indicate any symptoms associated with coronavirus-19. Ebola Screen: Patient denies travel to an Ebola-affected area in the 21 days before illness onset. Initial Sepsis Screen: Does the patient meet any 2 criteria? No. Patient's initial sepsis screen is negative. Does the patient have a suspected source of infection? No. Patient's initial sepsis screen is negative. Risk Assessment: Do you want to hurt yourself or someone else? Patient reports no desire to harm self or others. Onset of symptoms was June 22, 2024. 08:28 Method Of Arrival: Ambulatory ll1 08:28 Acuity: CHRISTIN 2 ll1 Triage Assessment: 08:28 General: Appears uncomfortable, Behavior is calm, cooperative, appropriate for age. ll1 General: Reports chills for feeling ill for fatigue for. Pain: Denies pain. Neuro: Reports headache. Respiratory: Reports pain with respiration. 10:14 Headache History: The patient has had previous headaches and this one is similar to ap3 previous episodes. Pain: Pain Pain began gradually. 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 - Infectious Disease History:: Denies. - Social history:: Smoking status: Patient denies any tobacco usage or history of. Screenin:33 Abuse screen: Denies threats or abuse. Nutritional screening: No deficits noted. ap3 Tuberculosis screening: No symptoms or risk factors identified. 10:13 [facility] ED Fall Risk Assessment (Adult) History of falling in the last 3 months, ap3 including since admission Yes- single mechanical fall (1 pt) Confusion or Disorientation No (0 pts) Intoxicated or Sedated No (0 pts) Impaired Gait No (0 pts) Mobility Assist Device Used No (0 pt) Altered Elimination No (0 pt) Score/Fall Risk Level 0 - 2 = Low Risk Oriented to surroundings, Maintained a safe environment, Educated pt \T\ family on fall prevention, incl call for assistance when getting out of bed, Assessed \T\ reinforced patient's understanding of fall precautions, Hourly rounding (assess needs \T\ fall precautionary measures) done, Used ambulatory aids as needed (educated on \T\ assisted with), Used gait belt as appropriate. Assessment: 08:32 General: Appears in no apparent distress. Behavior is cooperative. Pain: Complains of ap3 pain in chest Quality of pain is described as pressure. Neuro: Level of Consciousness is awake, alert, obeys commands, Oriented to person, place, time, situation, Appropriate for age Gait is steady, Speech is normal. Cardiovascular: Patient's skin is warm and dry. Cardiovascular: Reports chest pain. Respiratory: Airway is patent Respiratory effort is even, unlabored, Respiratory pattern is regular, symmetrical. Derm: patient sweating on forehead and reporting hotflashes at this time. 14:08 Reassessment: report faxed. ap3 Vital Signs: 08:28 BP 259 / 134; Pulse 66; Resp 18; Temp 98; Pulse Ox 98% on R/A; Weight 90.72 kg; Height ll1 5 ft. 4 in. ; Pain 4/10; 08:50 BP 231 / 133; Pulse 64; Pulse Ox 97% on R/A; ap3 08:53 BP 202 / 132; Pulse 60; Resp 18; Pulse Ox 97% on R/A; ap3 09:23 BP 207 / 125; Pulse 58; Pulse Ox 97% on R/A; ap3 10:14 BP 204 / 134; Pulse 55; Pulse Ox 97% on R/A; ap3 10:40 BP 197 / 124; Pulse 56; Pulse Ox 96% on R/A; ap3 11:59 BP 143 / 99; Pulse 67; Pulse Ox 100% ; ap3 08:28 Body Mass Index 34.33 (90.72 kg, 162.56 cm) ll1 08:28 Pain Scale: Adult ll1 [place] Coma Score: 11:01 Eye Response: spontaneous(4). Motor Response: obeys commands(6). Verbal Response: rn oriented(5). Total: 15. ED Course: 08:13 Patient arrived in ED. ra3 08:16 Neri Mata MD is Attending Physician. rn 08:27 Arm band placed on Patient placed in an exam room, on a stretcher. ll1 08:30 Triage completed. ll1 08:31 Beverly Case, RN is Primary Nurse. ap3 08:31 Initial lab(s) drawn, by me, sent to lab. Inserted saline lock: 22 gauge in right ap3 antecubital area, using aseptic technique. Blood collected. 08:32 Basic Metabolic Panel Sent. ap3 08:32 CBC with Diff Sent. ap3 08:32 LFT's Sent. ap3 08:32 NT PRO-BNP Sent. ap3 08:32 Troponin HS Sent. ap3 08:33 Patient has correct armband on for positive identification. Bed in low position. Call ap3 light in reach. Side rails up X 1. Client placed on continuous cardiac and pulse oximetry monitoring. NIBP monitoring applied. set off press operator on. Pulse ox on. NIBP on. 08:59 XRAY Chest (1 view) In Process Unspecified. EDMS 09:14 CT Head Brain wo Cont In Process Unspecified. EDMS 11:13 Joseph Villalta MD is Hospitalizing Provider. rn Administered Medications: 09:18 Drug: cloNIDine PO 0.2 mg PO once Route: PO; ap3 11:46 Follow up: Response: No adverse reaction; No change in condition tm6 11:26 Drug: hydrALAZINE IVP 10 mg IVP once Route: IVP; Site: right antecubital; tm6 11:47 Follow up: Response: No adverse reaction; No change in condition tm6 Medication: 10:14 VIS not applicable for this client. ap3 Outcome: 11:13 Decision to Hospitalize by Provider. rn 15:09 Patient left the ED. tm6 Signatures: Dispatcher [employer] EDMS Neri Mata MD MD rn Prokisch, Amanda RN RN ap3 Blanca Gonzalez RN RN ll1 Rod Nur RN RN tm6 Loli Cuellar ra3 Corrections: (The following items were deleted from the chart) 14:14 14:14 Reassessment: report faxed ap3 ap3
--- NOTE | 2024-06-26 11:14 | EDPHYS ---
Physician Documentation [facility] Name: Yahir Angel Age: 38 yrs Sex: Female : 1985 Arrival Date: 06/26/2024 Time: 08:09 Bed 3 Private MD: ED Physician Neri Mata HPI: 06/26 08:48 This 38 yrs old Black Female presents to ER via Ambulatory with complaints of Blood rn Pressure Problem, Headache, Chest Pain. 08:48 The patient complains of pain to the forehead, left mormonism and left temporal area. rn Onset: The symptoms/episode began/occurred 2 week(s) ago. Associated signs and symptoms: Pertinent positives: dizziness, blurred vision, Pertinent negatives: altered mental status, neck stiffness, vomiting. 09:00 Severity of symptoms: At its worst the pain was mild, in the emergency department the rn pain has improved. 38-year-old female with past medical history of hypertension presents to the emergency department complaining of high blood pressure, headache, chest pain. Patient states that she has had left frontal and left temporal headache rated as a 7/10 pain for the past 2 weeks and that she began developing episodic squeezing chest pains Tuesday that improved some over the weekend and is currently described as a mild nonradiating discomfort rated as 4/10 pain. This morning she began experiencing dizziness and blurry vision which prompted her to come to the emergency department. Patient reports her average blood pressure at home is usually about 160/90 and that she is currently taking labetalol, chlorthalidone, and losartan although she admits that she does not take the losartan as prescribed due to side effects of nausea. Patient reports she had a normal stress test last year. Denies shortness of breath, neck pain, back pain, nausea, vomiting.. 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 - Infectious Disease History:: Denies. - Social history:: Smoking status: Patient denies any tobacco usage or history of. ROS: 09:07 Constitutional: Negative for fever, chills, and weight loss, rn 09:07 Constitutional: Positive for Diaphoresis, 09:07 Eyes: Positive for blurry vision, Negative for discharge, itching, photophobia, tearing, 09:07 ENT: Negative for rhinorrhea, sinus congestion, sore throat, difficulty swallowing, 09:07 Neck: Negative for pain with movement, stiffness, 09:07 Cardiovascular: Positive for chest pain, of the chest, Negative for edema, orthopnea, palpitations, 09:07 Respiratory: Negative for cough, hemoptysis, shortness of breath, 09:07 Abdomen/GI: Negative for nausea, vomiting, diarrhea, black/tarry stool, rectal bleeding, 09:07 Back: Negative for radiated pain, 09:07 : Negative for urinary symptoms, hematuria, 09:07 MS/extremity: Negative for paresthesias, swelling, tingling, 09:07 Neuro: Positive for dizziness, headache, visual changes, Negative for altered mental status, gait disturbance, numbness, speech changes, syncope, tingling, weakness, 09:07 All other systems are negative, Exam: 11:01 Constitutional: This is a well developed, well nourished patient who is awake, alert, rn and in no acute distress. Head/Face: Normocephalic, atraumatic. Cardiovascular: Bradycardic, regular. No pulse deficits. Respiratory: No increased work of breathing, no retractions or nasal flaring. Abdomen/GI: Soft, non-tender MS/ Extremity: Pulses equal, no cyanosis. Neuro: Awake and alert, GCS 15, dizzy when standing, equal strength and sensation. 13:57 ECG was reviewed by the Attending Physician. rn Vital Signs: 08:28 BP 259 / 134; Pulse 66; Resp 18; Temp 98; Pulse Ox 98% on R/A; Weight 90.72 kg; Height ll1 5 ft. 4 in. ; Pain 4/10; 08:50 BP 231 / 133; Pulse 64; Pulse Ox 97% on R/A; ap3 08:53 BP 202 / 132; Pulse 60; Resp 18; Pulse Ox 97% on R/A; ap3 09:23 BP 207 / 125; Pulse 58; Pulse Ox 97% on R/A; ap3 10:14 BP 204 / 134; Pulse 55; Pulse Ox 97% on R/A; ap3 10:40 BP 197 / 124; Pulse 56; Pulse Ox 96% on R/A; ap3 11:59 BP 143 / 99; Pulse 67; Pulse Ox 100% ; ap3 08:28 Body Mass Index 34.33 (90.72 kg, 162.56 cm) ll1 08:28 Pain Scale: Adult ll1 [place] Coma Score: 11:01 Eye Response: spontaneous(4). Motor Response: obeys commands(6). Verbal Response: rn oriented(5). Total: 15. MDM: 08:16 Patient medically screened. rn 11:01 Differential diagnosis: hypertensive headache, intracerebral hemorrhage, neoplasm, rn subarachnoid bleed, tension headache, vasomotor headache. Data reviewed: vital signs, nurses notes, lab test result(s), EKG, radiologic studies, CT scan, and as a result, I will admit patient. Consideration of Admission/Observation Patient was admitted/placed on observation. Escalation of care including admission/observation considered. Counseling: I had a detailed discussion with the patient and/or guardian regarding the historical points, exam findings, and any diagnostic results supporting the discharge/admit diagnosis, lab results, radiology results, the need for further work-up and treatment in the hospital. Response to treatment: the patient's symptoms have mildly improved after treatment. ED course: Patient still extremely hypertensive, patient feels better but still dizzy with trouble walking especially when she stands up. Will admit to hospitalist service.. 11:15 ED course: I personally spent 35 minutes engaged in work directly related to the rn individual patient's care. This does not include any time spent performing procedures. The patient has been deemed critically ill because of malignant hypertension with hypertensive emergency requiring oral and IV antihypertensives.. 06/26 08:17 Order name: Basic Metabolic Panel; Complete Time: 09: rn 06/26 08:17 Order name: CBC with Diff; Complete Time: 08:52 rn 06/26 08:17 Order name: LFT's; Complete Time: : rn 06/26 08:17 Order name: NT PRO-BNP; Complete Time: : rn 06/26 08:17 Order name: Troponin HS; Complete Time: : rn 06/26 08:17 Order name: Test, Urine; Complete Time: 08:58 rn 06/26 08:17 Order name: Urinalysis w/ reflexes; Complete Time: 08:58 rn 06/26 13:54 Order name: T4 Free EDMS 06/26 13:54 Order name: Thyroid Stimulating Hormone EDMS 06/26 13:54 Order name: Basic Metabolic Panel EDMS 06/26 13:54 Order name: Basic Metabolic Panel EDMS 06/26 13:54 Order name: Basic Metabolic Panel EDMS 06/26 13:54 Order name: Basic Metabolic Panel EDMS 06/26 13:54 Order name: Basic Metabolic Panel EDMS 06/26 13:54 Order name: Basic Metabolic Panel EDMS 06/26 13:54 Order name: CBC with Automated Diff EDMS 06/26 13:54 Order name: CBC with Automated Diff EDMS 06/26 13:54 Order name: CBC with Automated Diff EDMS 06/26 13:55 Order name: CBC with Automated Diff EDMS 06/26 13:55 Order name: CBC with Automated Diff EDMS 06/26 13:55 Order name: CBC with Automated Diff EDMS 06/26 13:55 Order name: Lipid Profile EDMS 06/26 13:55 Order name: Lipid Profile EDMS 06/26 13:55 Order name: Magnesium EDMS 06/26 13:55 Order name: Magnesium EDMS 06/26 13:55 Order name: Magnesium EDMS 06/26 13:55 Order name: Magnesium EDMS 06/26 13:55 Order name: Magnesium EDMS 06/26 13:55 Order name: Magnesium EDMS 06/26 13:55 Order name: Phosphorus EDMS 06/26 13:55 Order name: Phosphorus EDMS 06/26 13:55 Order name: Phosphorus EDMS 06/26 13:55 Order name: Phosphorus EDMS 06/26 13:55 Order name: Phosphorus EDMS 06/26 13:55 Order name: Phosphorus EDMS 06/26 08:17 Order name: XRAY Chest (1 view); Complete Time: 09:26 rn 06/26 08:52 Order name: CT Head Brain wo Cont; Complete Time: 09:26 rn 06/26 08:17 Order name: EKG; Complete Time: 08:18 rn 06/26 08:17 Order name: Cardiac monitoring; Complete Time: 08:32 rn 06/26 08:17 Order name: EKG - Nurse/Tech; Complete Time: 08:36 rn 06/26 08:17 Order name: IV Saline Lock; Complete Time: 08:32 rn 06/26 08:17 Order name: Labs collected and sent; Complete Time: 08:32 rn 06/26 08:17 Order name: O2 Per Protocol; Complete Time: 08:32 rn 06/26 08:17 Order name: O2 Sat Monitoring; Complete Time: : rn EC:57 Rate is 62 beats/min. Rhythm is regular. QRS [place] is Normal. OR interval is normal. QRS rn interval is normal. QT interval is normal. No Q waves. T waves are Normal. No ST changes noted. Clinical impression: NSR w/ Non-specific ST/T Changes. Interpreted by me. Reviewed by me. Administered Medications: 09:18 Drug: cloNIDine PO 0.2 mg PO once Route: PO; ap3 11:46 Follow up: Response: No adverse reaction; No change in condition tm6 11:26 Drug: hydrALAZINE IVP 10 mg IVP once Route: IVP; Site: right antecubital; tm6 11:47 Follow up: Response: No adverse reaction; No change in condition tm6 Disposition Summary: 06/26/24 11:13 Hospitalization Ordered Notes: Hospitalization Status: Observation rn Provider: Joseph Villalta rn Condition: Stable rn Problem: an ongoing problem rn Symptoms: have improved rn Bed/Room Type: Standard rn Location: Telemetry/MedSurg (observation)(06/26/24 14:01) ja1 Room Assignment: [facility](06/26/24 14:01) [facility] Diagnosis - Hypertensive emergency rn - Dizziness and giddiness rn Forms: - Medication Reconciliation Form rn - SBAR form rn - Leadership Thank You Letter agronomy internship time excluding procedures: 11:15 Critical care time: Bedside Care: 30 minutes, Consultation: 5 minutes. Total time: 35 rn minutes Signatures: Dispatcher [employer] EDQuyen Chairez Roman, MD MD rn Aguilar, Jose RN RN ja1 Beverly Case RN RN ap3 Blanca Gonzalez RN RN 1 Rod Nur RN RN tm6 Corrections: (The following items were deleted from the chart) 12:54 11:13 Telemetry/MedSurg (observation) rn christoph 12:54 11:13 rn bd 14:01 12:54 [facility] ER HOLD bd ja1 14:01 12:54 ERHOLD- bd ja1
[2024-06-26] MEDS ORDERED: HYDRALAZINE HCL 20 MG/ML VIAL ONE (11:22)
--- NOTE | 2024-06-26 14:05 | P.HP ---
Certification for Inpatient Patient admitted to: Observation With expected LOS: <2 Midnights Patient will require the following post-hospital care: None Practitioner: I am a practitioner with admitting privileges, knowledge of patient current condition, hospital course, and medical plan of care. Services: Services provided to patient in accordance with Admission requirements found in Title 42 Section 412.3 of the Code of Federal Regulations Patient History Date of Service: 06/26/24 Reason for admission: HTN emergency History of Present Illness: Yahir Mitchell is a 38 year old female with Pmhx hypertension, hyperlipidemia, tumor removed from her throat, who presents to the ED with chief complaint of headache, dizziness, and chest pain. She reports her blood pressure runs high and she monitors it regularly. She also reports being compliant with her medications. Her blood pressure records as follows: 182/125, 203/134, 183/125 prior to coming to the ED. On evaluation, her BP was better regulated at SBP 168. Intial vitals BP 259 / 134; Pulse 66; Resp 18; Temp 98; Pulse Ox 98% on R/A Laboratory evaluation creatinine 1.2, GFR 60, TSH 3.460, free T41.11, UA negative. Chest xray reports "The lungs are grossly clear. The heart is upper limit of normal in size. No displaced fractures. IMPRESSION: No acute intrathoracic process suspected." Head CT reports " No intracranial hemorrhage, hydrocephalus or extra-axial fluid collection.No areas of brain edema or evidence of midline shift. The paranasal sinuses and mastoids are clear. The calvarium is intact. IMPRESSION: No acute intracranial abnormality." Yahir will be admitted to hospitalist service for further treatment of hypertensive emergency. Allergies No Known Allergies Allergy (Unverified 01/01/17 23:02) Home Medications: Chlorthalidone 25 mg PO DAILY 06/26/24 Labetalol HCl [Trandate] 200 mg PO BID 06/26/24 Losartan Potassium 50 mg PO DAILY 06/26/24 - Past Medical/Surgical History -: HTN -: Hyperlipidemia -: Tumor removed from throat - Social History Smoking Status: Never smoker Alcohol use: No CD- Drugs: No Review of Systems General: Other (headache) Neurological: Other (Dizziness) Physical Examination - Physical Exam General: Alert, In no apparent distress, Oriented x3 HEENT: Atraumatic, Normocephalic, PERRLA Neck: Supple, JVD not distended Respiratory: Clear to auscultation bilaterally, Normal air movement, Diminished Cardiovascular: Normal pulses, Regular rate/rhythm, Normal S1 S2 Capillary refill: <2 Seconds Gastrointestinal: Soft and benign, Non-distended, No tenderness Musculoskeletal: No swelling Integumentary: No rashes Neurological: Normal speech, Normal tone - Studies Laboratory Data (last 24 hrs) 06/26/24 06/26/24 08:29 08:29 WBC 7.80 Hgb 13.7 Hct 41.6 Plt Count 347 Sodium 138 Potassium 3.5 BUN 11 Creatinine 1.20 H Glucose 105 Total Bilirubin 0.4 AST 19 ALT 18 Alkaline Phosphatase 85 Assessment and Plan - Plan Assessment and plan Hypertensive emergency Dizziness -Initial 259/135 BP correction in the ED -Head CT reports " No intracranial hemorrhage, hydrocephalus or extra-axial fluid collection.No areas of brain edema or evidence of midline shift. The paranasal sinuses and mastoids are clear. The calvarium is intact. IMPRESSION: No acute intracranial abnormality." -Chest xray reports "The lungs are grossly clear. The heart is upper limit of normal in size. No displaced fractures. IMPRESSION: No acute intrathoracic process suspected." -Hydralazine as needed -Continue home medication -Close BP monitoring -Continuous telemetry REBECCA -BUN/creatinine 09/07.20, GFR 60 -Monitor in a.m. lab History of hyperlipidemia -Continue home medications DVT PPx heparin Full code LOS 24-hour OBS Discharge Plan: Home Plan to discharge in: 24 Hours - Advance Directives Does patient have a Living Will: No Does patient have a Durable POA for Healthcare: No
[2024-06-26 16:00] VITALS: BMI 36.6
[2024-06-26] MEDS: HEPARIN 5000 UNIT/ML 1 ML VIAL SQ SCH (17:00)
[2024-06-26] MEDS: AMLODIPINE 10 MG TAB PO SCH (18:07)
[2024-06-26] MEDS: ACETAMIN/CAFFEINE/BUTALB TAB PO PRN (18:40)
[2024-06-26 19:29] LABS: Thyroid Stimulating Hormone 3.46 uIU/mL (0.358-3.740)
[2024-06-26] MEDS: HYDRALAZINE HCL 20 MG/ML VIAL IV PRN (20:51)
[2024-06-26] MEDS: LOSARTAN POTASSIUM 50 MG TABLET PO SCH (23:02)
[2024-06-27 04:56] LABS: Absolute Eosinophils 0.5 K/uL (0-0.5); Absolute Lymphocytes (CBC) 2.4 K/uL (0.7-4.9); Absolute Monocytes 0.5 K/uL (0.1-1.3); Basophils % 0.5 % (0-1.3); Eosinophils % 6.5 % (0-4.4); Hematocrit 42.2 % (36.0-45.0); Lymphocytes % 28.6 % (15.3-44.8); MCH 27.7 pg (27.0-35.0); MCHC 33.1 g/dL (32.0-36.0); MCV 83.5 fL (80-100); MPV 8.3 fL (7.6-11.3); Monocytes % 5.5 % (3.3-12.3); Neutrophils % 58.9 % (41.7-73.7); Platelets 361 thou/uL (152-406); RBC Red Blood Cell Count 5.06 M/uL (3.86-4.86); Red Cell Distribution Width 14.3 % (12.1-15.2)
[2024-06-27 05:09] LABS: Troponin High Sensitivity 14.5 pg/mL (<58.9)
[2024-06-27 05:18] LABS: Anion Gap 13.8 mEq/L (5.0-15.0); Magnesium 1.6 mg/dL (1.6-2.4); Potassium 2.8 mEq/L (3.5-5.1)
[2024-06-27] MEDS ORDERED: ONDANSETRON 4 MG/2 ML VIAL IV PRN (05:24)
[2024-06-27] MEDS: CHLORTHALIDONE 25 MG TAB PO SCH (08:08)
[2024-06-27] MEDS ORDERED: LOSARTAN POTASSIUM 50 MG TABLET PO SCH (09:00)
[2024-06-27] MEDS: LABETALOL HCL 100 MG TAB PO SCH (09:31)
[2024-06-27] MEDS: IBUPROFEN 600 MG TAB PO PRN (09:35)
[2024-06-27] MEDS: MAGNESIUM SULFATE 1 gm IVPB 1 GM/100 ML BAG IV ONE (10:30)
--- NOTE | 2024-06-27 11:26 | RAD REPORT ---
EXAM DESCRIPTION: MRI - Brain Wo Cont - 06/27/2024 10:53 am CLINICAL HISTORY: CVA r/o COMPARISON: No comparisons TECHNIQUE: Sagittal T1-weighted images were obtained along with PD/heavily T2-weighted and T2-FLAIR images. Axial DWI and ADC mapping sequences were also obtained along with coronal heavily T2-weighted images were obtained. FINDINGS: No intracranial hemorrhage, mass or acute infarction. There is no edema or shift of midlin e structures. No extra-axial fluid collections. Signal voids are seen as a normal finding in the gabbie r intracranial vessels. No significant white matter disease. Empty sella, typically a normal variant. Mastoid air cells and paranasal sinuses are clear. IMPRESSION: No acute intracranial abnormality. No evidence of acute or prior infarct. No appreciable white matter disease.
--- NOTE | 2024-06-27 11:51 | RAD REPORT ---
EXAM DESCRIPTION: US - Abdomen Pelvis Scan US - 06/27/2024 11:20 am CLINICAL HISTORY: High blood pressure kidney / adrenal ultrasound COMPARISON: No comparisons FINDINGS: The bilateral kidneys are normal in size, the right measuring 10.6 cm and the left measuri ng 10.2 cm. Aortic velocity: 40 cm/second Right proximal renal artery: 91 cm/second Right mid renal artery: 43 cm/second Right distal renal artery: 35 cm/second Right renal arcuate artery resistive index: 0.5 Right renal artery / aorta ratio: 2.3 Left proximal renal artery: 113 cm/second Left mid renal artery: 116 cm/second Left distal renal artery: 40 cm/second Left renal arcuate artery resistive index: 0.5 Left renal artery/aorta ratio: 2.9 Normal waveforms demonstrated within the bilateral renal arteries. IMPRESSION: No evidence of hemodynamically significant stenosis within the bilateral renal arteries.
[2024-06-27 12:12] LABS: Anion Gap 11.3 mEq/L (5.0-15.0)
[2024-06-27 12:22] LABS: Potassium 3.3 mEq/L (3.5-5.1)
[2024-06-27] MEDS: KCL 20 MEQ/100 mL IVPB 20 MEQ/100 ML BAG IV SCH (12:30)
[2024-06-27] MEDS: POTASSIUM 25 MEQ EFFERV TAB PO ONE (14:08)
--- NOTE | 2024-06-27 15:08 | P.PN ---
Date of Service: 06/27/24 Subjective OVN she reported facial numbness, dizziness, flushing, difficulty catching breath. Code stroke alert with Head CT performed with no acute findings 10 point ROS as noted above, otherwise negative Physical Exam General: Alert and Oriented x3, NAD HEENT: Atraumatic, Normocephalic, PERRLA Neck: Supple, JVD not distended Respiratory: Clear to auscultation bilaterally, Normal air movement, on RA Cardiovascular: Normal pulses, RRR, Normal S1 S2 Capillary refill: <2 Seconds Gastrointestinal: Soft on palpation, Non-distended, No tenderness Musculoskeletal: No swelling Integumentary: No rashes Neurological: Normal speech, Normal tone, anxious Vitals Reviewed Problem list Hypertensive emergency Dizziness Electrolye imbalance REBECCA History of hyperlipidemia Assessment and Plan CVA r/o -facial numbness, dizziness -Head CT with no acute findings -MRI head reports "No acute intracranial abnormality. No evidence of acute or prior infarct. No appreciable white matter disease." -ECHO results pending -Likely secondary to uncontrolled hypertension Hypertensive emergency Dizziness -Initial 259/135 BP correction in the ED -Head CT reports " No intracranial hemorrhage, hydrocephalus or extra-axial fluid collection.No areas of brain edema or evidence of midline shift. The paranasal sinuses and mastoids are clear. The calvarium is intact. IMPRESSION: No acute intracranial abnormality." -Chest xray reports "The lungs are grossly clear. The heart is upper limit of normal in size. No displaced fractures. IMPRESSION: No acute intrathoracic process suspected." -Hydralazine stopped, losartan, norvasc, labetalol started -Continue home medication -Close BP monitoring -Continuous telemetry -Will evaluate for secondary hypertension -cardiology and nephrology consulted -Will start spironolactone after finishing the hormonal workup, stopped chlorthalidone -Renal ultrasound reports "No evidence of hemodynamically significant stenosis within the bilateral renal arteries." -Cortisol, aldosterone, metanephrine, urine electrolye and hormonal workup pending -TSH/free T4 3.460/1.11 Electrolye imbalance -K 2.8, sodium 132 -replace PRN -monitor in AM labs REBECCA Secondary to uncontrolled HTN -BUN/creatinine 12/0.91, GFR 81 -Monitor in a.m. lab History of hyperlipidemia -Continue home medications DVT PPx heparin d/t kidney function Full code LOS 24-hour OBS Discharge Plan: Home Plan to discharge in: 24 Hours <Masha Arcos - Last Filed: 06/27/24 19:26> Patient seen and examined. Plan of care discussed with Ms. Arcos. Patient reported being hypertensive since the age of 20. Diagnosis: Malignant hypertension Hyponatremia. Secondary hypertension suspected Nephrology consulted, evaluation for secondary hypertension initiated. Renal vascular ultrasound does not show any significant renal artery stenosis. Amlodipine added to patient's home antihypertensives-labetalol and losartan. Chlorthalidone discontinued due to hyponatremia <alise hernandez - Last Filed: 06/28/24 17:02>
--- NOTE | 2024-06-27 16:10 | P.CNS ---
Date of Consult: 06/27/24 Chief Complaint: HTN emergency History of Present Illness: Patient with PMH of HTN, presented with SOB, chest pain that has been going on for last week, better now but report headaches that has been really bothering her, no palpitations, no syncope. Allergies No Known Allergies Allergy (Unverified 01/01/17 23:02) Home medications list reviewed: Yes Home Medications: Chlorthalidone 25 mg PO DAILY 06/26/24 Labetalol HCl [Trandate] 200 mg PO BID 06/26/24 Losartan Potassium 50 mg PO DAILY 06/26/24 - Past Medical/Surgical History Diabetic: No -: HTN -: Hyperlipidemia -: Tumor removed from throat - Social History Smoking Status: Current every day smoker Alcohol use: No CD- Drugs: No Caffeine use: Yes Place of Residence: Home Review of Systems 10-point ROS is otherwise unremarkable Physical Examination Temp Pulse Resp BP Pulse Ox 98.2 F 85 14 148/94 H 99 06/27/24 12:00 06/27/24 12:00 06/27/24 12:00 06/27/24 12:00 06/27/24 12:00 General: Alert, In no apparent distress HEENT: Atraumatic, PERRLA, Mucous membr. moist/pink, EOMI, Sclerae nonicteric Neck: Supple, 2+ carotid pulse no bruit, No LAD, Without JVD or thyroid abnormality Respiratory: Clear to auscultation bilaterally, Normal air movement Cardiovascular: Regular rate/rhythm, Normal S1 S2 Gastrointestinal: Normal bowel sounds, No tenderness Musculoskeletal: No tenderness Integumentary: No rashes Neurological: Normal gait, Normal speech, Normal tone, Normal affect Lymphatics: No axilla or inguinal lymphadenopathy - Problems (1) Chest pain Current Visit: Yes Status: Acute Plan: non cardiac in origin, cardiac enzymes are negative no further cardiac work up needed. (2) HTN (hypertension) Current Visit: Yes Status: Acute Plan: recommend adding Aldactone 25 mg daily to her current regimen.
--- NOTE | 2024-06-27 16:54 | EKG ---
Test Date: 2024-06-27 Test Time: 03:07:26 Director Of Primary: ARANZA MEASUREMENT RESULTS: Intervals: Rate: 71 WI: 142 QRSD: 100 QT: 384 QTc: 417 [place]: P: 49 WI: 142 QRS: 16 T: 62 INTERPRETIVE STATEMENTS: Normal sinus rhythm Biatrial enlargement Left ventricular hypertrophy Nonspecific T wave abnormality Abnormal ECG Compared to ECG 06/27/2024 02:27:50 No significant changes Electronically Signed On 06-27-24 16:53:42 CDT by Fracisco Horton
--- NOTE | 2024-06-27 16:55 | EKG ---
Test Date: 2024-06-27 Test Time: 02:27:50 Integrated Circuit Fabricator: ARANZA MEASUREMENT RESULTS: Intervals: Rate: 73 OK: 144 QRSD: 100 QT: 394 QTc: 434 [place]: P: 50 OK: 144 QRS: 12 T: 58 INTERPRETIVE STATEMENTS: Normal sinus rhythm Biatrial enlargement Left ventricular hypertrophy Nonspecific T wave abnormality Abnormal ECG Compared to ECG 06/26/2024 08:32:41 Atrial abnormality now present T-wave abnormality now present Sinus arrhythmia no longer present Electronically Signed On 06-27-24 16:53:45 CDT by Fracisco Horton
--- NOTE | 2024-06-27 17:01 | EKG ---
Test Date: 2024-06-26 Test Time: 08:32:41 Type Mapper: SARAI MEASUREMENT RESULTS: Intervals: Rate: 62 GA: 158 QRSD: 98 QT: 412 QTc: 418 [place]: P: 37 GA: 158 QRS: 9 T: 37 INTERPRETIVE STATEMENTS: Normal sinus rhythm with sinus arrhythmia Voltage criteria for left ventricular hypertrophy Abnormal ECG Compared to ECG 10/20/2022 07:52:59 No significant changes Electronically Signed On 06-27-24 16:57:35 CDT by Fracisco Horton
--- NOTE | 2024-06-27 17:09 | CON ---
Date of Consultation: 06/27/2024 Reason For Consultation: Elevated BUN and creatinine, hypokalemia, hypertension. History Of Present Illness: This is a pleasant, unfortunate 38-year-old female with significant past medical history of hypertension at age of 20, according to her, was the diagnosis and claimed as inherited as both her parents had high blood pressure. Patient came to the hospital with hypertension and hypokalemia. For that reason, we have been consulted. Patient denied taking any licorice, denied taking any supplement. Patient being on chlorthalidone and losartan with labetalol as an outpatient. Upon arrival to the hospital, blood pressure was elevated up to 250/130. Patient was started on treatment. Blood pressure better controlled, but the patient persistently had hypokalemia. Again, patient denied taking any licorice, any herbal medication. Past Medical History: Include: 1. Hypertension. 2. Hyperlipidemia. 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 Social History: Denied smoking. Denied drinking. Denied drugs abuse. Family History: Positive for hypertension. Allergies: NO KNOWN DRUGS ALLERGY. Review of Systems: Head and Neck: No red eye. No ear pain. GI: No nausea. No vomiting. : No polyuria. No dysuria. No hematuria. METEOROLOGICAL OBSERVER: No vaginal discharge. Respiratory: No shortness of breath. Cardiovascular: No chest pain. Endocrine: No polydipsia. Skin: No rash. Denied any higher pigmentation. Denied any mouth ulcer. Denies any photosensitivity. Neuro: No weakness. Musculoskeletal: No joint pain. No muscular atrophy. Physical Examination: Vital Signs: When I saw the patient, blood pressure 148/94, pulse of 85, afebrile. Chest: Clear to auscultation. Heart: S1, S2. Regular. Abdomen: Soft, nontender. Could not appreciate any bruit over the renal artery area. Extremities: No edema. Vascular: No bruit on the renal artery. No bruit on the carotid. Laboratory Data: WBC 8.5, hemoglobin 14, platelet 361. Sodium 134, potassium 3.3, bicarb 24, BUN 12, creatinine 1.2. Reviewing the record for the patient, creatinine 0.9. Patient has persistent hypokalemia. The patient had CT with contrast yesterday. Still pending reading. Assessment And Plan: 1. Acute kidney injury secondary to uncontrolled hypertension. No hematuria. Currently, blood pressure been controlled. We will continue current regimen. We will follow up blood pressure. I am going to go ahead and discontinue ibuprofen. We will send for renal ultrasound with vascular evaluation. 2. Hypertension, not controlled, mostly secondary hypertension supportive with the finding of hyponatremia and hypokalemia, to rule out adrenal insufficiency. We will send for urine electrolyte. We will send for hormonal workup. We will send for echocardiogram. Currently, blood pressure on the controlled side. We will continue. 3. Hypokalemia, hyponatremia. We will continue supplement. We will check for magnesium. We will check for TSH and CK and we will follow up. I am going to go ahead and discontinue chlorthalidone for the time being. We will consider adding spironolactone after finished the hormonal workup. Thank you, Dr. Valenzuela, for allowing us to participate in the care of your patient. Time spent examining the patient [id number] reviewing the data and clapper and the radiology placing order discussing the case with the patient discussing the case with the steam hoist operator including hospitalist and nursing staff more than 75 minutes ANDRE Voice ID: [id number] Report ID: [id number] BLAINE
--- NOTE | 2024-06-27 20:59 | RAD REPORT ---
EXAM DESCRIPTION: CT - Chest For Pe Angio - 06/27/2024 6:36 am ADDENDUM #1 The following addendum is being made to expand on the patient's clinical history, and does not change the findings or recommendations of the original report. Additional History: 38-year-old female with sudden onset of shortness of breath, chest pain, sweating and numbness of hand. Electronically signed by: Shonna Atkinson DO 06/27/2024 07:45 AM CDT RP End of Addendum EXAM DESCRIPTION: CT chest angiography with intravenous contrast CLINICAL HISTORY: 38 years Female PE protocol. TECHNIQUE: Following the administration of intravenous contrast, multiple high-resolution axial imag es of the chest were performed followed by sagittal and coronal reconstructed images. Coronal oblique MIP images were also performed. The CT study is performed according to ALARA (as low as reasonably a chievable) or ALARA/IMAGE GENTLY, with automatic adjustment of mA and/or kV according to patient size . Performed on: 06/27/2024 at 4:08 AM COMPARISON: Chest x-ray report from 06/26/2024. The image was not available for review. FINDINGS: There is suboptimal contrast opacification of the pulmonary arteries on this examination . There is significantly greater enhancement of the thoracic aorta as compared to the pulmonary arter ies. The pulmonary artery trunk and main pulmonary arteries enhance homogeneously without evidence of intra-arterial filling defects. However, evaluation of the segmental and subsegmental pulmonary nubia joshua is limited on this examination for evaluation of pulmonary emboli. There is no evidence of thora cic aortic aneurysm or dissection. The lungs are well expanded and are clear. There is no evidence of a pneumothorax. There are no pleur al effusions. The central airways are patent. The heart is normal in size. There is no pericardial effusion. There is no reflux of contrast into th e hepatic veins to suggest right heart strain.The RV/LV ratio is within normal limits. There is no evidence of hilar, mediastinal or axillary lymphadenopathy. No acute osseous abnormality is identified. The visualized upper abdominal structures are unremarkable. IMPRESSION: 1. Suboptimal contrast opacification of the pulmonary arteries on this examination. Th ere is significantly greater enhancement of the thoracic aorta as compared to the pulmonary arteries. The pulmonary artery trunk and main pulmonary arteries enhance homogeneously without evidence of int ra-arterial filling defects. However, evaluation of the segmental and subsegmental pulmonary arteries is limited on this examination for evaluation of pulmonary emboli. 2. No evidence of thoracic aortic aneurysm or dissection. 3. No evidence of acute intrathoracic disease. Electronically signed by: Shonna Atkinson DO 06/27/2024 05:58 AM CDT Due to temporary technical issues with the PACS/Fluency reporting system, reports are being signed by the in house radiologists without review as a courtesy to insure prompt reporting. The interpreting radiologist is fully responsible for the content of the report.
--- NOTE | 2024-06-27 21:01 | RAD REPORT ---
EXAM DESCRIPTION: CT - Ct Stroke Brain Wo Cont - 06/27/2024 5:04 am ADDENDUM #1 ADDENDUM: Dr. Nick Pierre is notified of findings on 06/27/2024 at 5:44 AM ET. Electronically signed by: Beltran Barrientos MD 06/27/2024 04:54 AM [employer] End of Addendum EXAM: CT Head/Brain Without Contrast 06/27/2024 at 4: 02 AM CLINICAL HISTORY: Stroke protocol COMPARISON: CT Head/Brain Without Contrast 06/26/2024 at 9:16 AM TECHNIQUE: Head/brain axial images acquired without contrast. Coronal and sagittal reformats created . Exam performed according to departmental dose-optimization program which includes automated exposur e control, adjustment of mA and/or kV according to patient size, and/or use of iterative reconstructi on technique. FINDINGS: No midline shift, mass effect, intracranial hemorrhage, or hydrocephalus. Brain parenchyma unremarkable. Empty sella (likely normal variant). Paranasal sinuses clear. Mastoid air cells clear. No skull fracture or significant skull lesion. IMPRESSION: Unremarkable CT head/brain without contrast. If there remains strong clinical suspicion of acute ischemic infarct, then MR brain/head recommended (if there are no contraindications). Electronically signed by: Beltran Barrientos MD 06/27/2024 04:43 AM [email or web address] RP Due to temporary technical issues with the PACS/Fluency reporting system, reports are being signed by the in house radiologists without review as a courtesy to insure prompt reporting. The interpreting radiologist is fully responsible for the content of the report.
[2024-06-28 06:49] LABS: Absolute Basophils 0.1 K/uL (0-0.5); Absolute Eosinophils 0.2 K/uL (0-0.5); Absolute Lymphocytes (CBC) 2.4 K/uL (0.7-4.9); Absolute Monocytes 0.5 K/uL (0.1-1.3); Absolute Neutrophil 4.3 K/uL (1.8-8.0); Basophils % 0.7 % (0-1.3); Eosinophils % 2.8 % (0-4.4); Hematocrit 47.3 % (36.0-45.0); Hemoglobin 15.4 g/dL (12.0-15.0); Lymphocytes % 31.8 % (15.3-44.8); MCH 27.5 pg (27.0-35.0); MCHC 32.6 g/dL (32.0-36.0); MCV 84.3 fL (80-100); MPV 8.1 fL (7.6-11.3); Monocytes % 7.2 % (3.3-12.3); Neutrophils % 57.5 % (41.7-73.7); Nucleated Red Blood Cells % 0.1 % (0-0); Platelets 368 thou/uL (152-406); RBC Red Blood Cell Count 5.61 M/uL (3.86-4.86); Red Cell Distribution Width 14.1 % (12.1-15.2)
[2024-06-28 06:55] LABS: Albumin 4.3 g/dL (3.4-5.0); Anion Gap 8.8 mEq/L (5.0-15.0); Magnesium 2.4 mg/dL (1.6-2.4); Phosphorus 5.4 mg/dL (2.5-4.9); Potassium 3.8 mEq/L (3.5-5.1); Thyroid Stimulating Hormone 1.34 uIU/mL (0.358-3.740)
[2024-06-28 07:06] LABS: Specific Gravity > 1.030 (1.005-1.030); Sqamous Epithelial <5 /HPF (None Seen); Urine Bacteria None Seen /HPF (<20); Urine Bilirubin NEGATIVE (Negative); Urine Blood Negative (Negative); Urine Clarity Extremely Turbid (Clear); Urine Color Yellow (Yellow); Urine Culture Reflex Order REFLEXED; Urine Glucose NEGATIVE (Negative); Urine Ketones TRACE (Negative); Urine Microscopic Reflex YN ORDER UMIC; Urine Mucus 1+ /HPF (None Seen); Urine Nitrite NEGATIVE (Negative); Urine Protein 1+ (Negative); Urine Urobilinogen Normal (Normal); Urine WBC 20-50 /HPF (<5); Urine pH 5.5 (5.0-7.0)
[2024-06-28 07:30] LABS: UR PROTEIN 48.7 mg/dL (<11.9); Urine Protein/Creatinine Ratio 0.11 ratio (<0.15)
--- NOTE | 2024-06-28 08:58 | ECHO ---
HEIGHT: 5 ft 2 in WEIGHT: 207 lb 8 oz DATE OF STUDY: 06/27/[address]: Nick Pierre DO 2-DIMENSIONAL: YES M.MODE: YES DOPPLER: YES COLOR FLOW: YES TDS: PORTABLE: YES DEFINITY: BUBBLE STUDY: DIAGNOSIS: CHEST PAIN CARDIAC HISTORY: CATHERIZATION: SURGERY: PROSTHETIC VALVE: PACEMAKER: MEASUREMENTS (cm) DIASTOLIC (NORMALS) SYSTOLIC (NORMALS) IVSd 1.7 (0.6-1.2) LA Diam 3.3 (1.9-4.0) LVEF 60-65% LVIDd 3.2 (3.5-5.7) LVIDs 1.7 (2.0-3.5) %FS LVPWd 1.8 (0.6-1.2) Ao Diam 2.5 (2.0-3.7) 2 DIMENSIONAL ASSESSMENT: RIGHT ATRIUM: NORMAL LEFT ATRIUM: NORMAL RIGHT VENTRICLE: NORMAL LEFT VENTRICLE: SEVERE LEFT VENTRICULAR HYPERTROPHY TRICUSPID VALVE: NORMAL MITRAL VALVE: NORMAL PULMONIC VALVE: NORMAL AORTIC VALVE: NORMAL PERICARDIAL EFFUSION: NONE AORTIC ROOT: NORMAL LEFT VENTRICULAR WALL MOTION: NORMAL DOPPLER/COLOR FLOW: GRADE I DIASTOLIC DYSFUNCTION COMMENTS: 1. SEVERE CONCENTRIC LEFT VENTRICULAR HYPERTROPHY 2. NORMAL LEFT VENTRICULAR SYSTOLIC FUNCTION, EJECTION FRACTION 60-65%, NORMAL WALL MOTION 3. GRADE I DIASTOLIC DYSFUNCTION TECHNOLOGIST: COCO SILVA
[2024-06-28] MEDS: POTASSIUM 25 MEQ EFFERV TAB PO ONE (09:56)
[2024-06-28] MEDS: Ringers Lactate 1,000 ML IV ONE (09:57)
--- NOTE | 2024-06-28 10:13 | P.DS ---
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 She reports her blood pressure runs high and she monitors it regularly. She also reports being compliant with her medications. Her blood pressure records as follows: 182/125, 203/134, 183/125 prior to coming to the ED. On evaluation, her BP was better regulated at SBP 168. Intial vitals BP 259 / 134; Pulse 66; Resp 18; Temp 98; Pulse Ox 98% on R/A Laboratory evaluation creatinine 1.2, GFR 60, TSH 3.460, free T41.11, UA negative. Chest xray reports "The lungs are grossly clear. The heart is upper limit of normal in size. No displaced fractures. IMPRESSION: No acute intrathoracic process suspected." Head CT reports " No intracranial hemorrhage, hydrocephalus or extra-axial fluid collection.No areas of brain edema or evidence of midline shift. The paranasal sinuses and mastoids are clear. The calvarium is intact. IMPRESSION: No acute intracranial abnormality." Yahir will be admitted to hospitalist service for further treatment of hypertensive emergency. 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 Yahir presented with severe hypertension of 259 / 134 and as tracked at home 182/125, 203/134, 183/125 while remaining compliant with her medications. During this admission she has tolerated antihypertensives as well as electrolyte repl acement. Dr. Horton and Dr. Frias were consulted for further evaluation of secondary hypertension. Kidney ultrasound negative for limited blood flow, CTA chest negative for PE, further laboratory results pending. She had an episode of facial and finger tip numbness, Code stroke was called. CT head and MRI head were negative for acute findings, symptoms resolved and likely was a result of Blood pressure fluctuation. Blood pressure now better controlled. She is sitting up in bed and feeling well. UOP remained stable, she is ambulating independently, tolerating PO diet, and hemodynamically stable for discharge. Plan to follow up with Dr. Frias for further investigations of secondary hypertension. On 06/28/24, Yahir was seen on morning rounds and deemed medically stable for discharge. Yahir was discharged with instructions to schedule follow-up appointments with Dr. Frias and PCP. Yahir was provided prescriptions for Norvasc. Physical Exam General: Awake, Alert and Oriented x3, NAD, conversing well HEENT: Atraumatic, Normocephalic, PERRLA Neck: Supple, JVD not distended Respiratory: Clear to auscultation bilaterally, Normal air movement, on RA Cardiovascular: Normal pulses, Regular rate and rhythm, Normal S1 S2 Capillary refill: <2 Seconds Gastrointestinal: Soft on palpation, Non-distended, No tenderness Musculoskeletal: No swelling Integumentary: No rashes Neurological: Normal speech, Normal tone, anxious Vital Signs/Physical Exam: Temp Pulse Resp BP Pulse Ox 96.9 F 79 16 141/93 H 99 06/28/24 08:00 06/28/24 09:56 06/28/24 08:00 06/28/24 09:56 06/28/24 08:00 Laboratory Data at Discharge: WBC 7.50 thou/uL (4.3-10.9) 06/28/24 06:17 Hgb 15.4 g/dL (12.0-15.0) H D 06/28/24 06:17 Hct 47.3 % (36.0-45.0) H 06/28/24 06:17 Plt Count 368 thou/uL (152-406) 06/28/24 06:17 Sodium 135 mEq/L (136-145) L 06/28/24 06:17 Potassium 3.8 mEq/L (3.5-5.1) D 06/28/24 06:17 BUN 27 mg/dL (7-18) H 06/28/24 06:17 Creatinine 1.81 mg/dL (0.55-1.02) H 06/28/24 06:17 Glucose 121 mg/dL (74-106) H 06/28/24 06:17 Uric Acid 7.0 mg/dL (2.6-6.0) H 06/28/24 06:17 Phosphorus 5.4 mg/dL (2.5-4.9) H 06/28/24 06:17 Magnesium 2.4 mg/dL (1.6-2.4) 06/28/24 06:17 Total Bilirubin 0.4 mg/dL (0.2-1.0) 06/26/24 08:29 AST 19 U/L (15-37) 06/26/24 08:29 ALT 18 U/L (13-56) 06/26/24 08:29 Alkaline Phosphatase 85 U/L (45-117) 06/26/24 08:29 Triglycerides 124 mg/dL (<150) 06/27/24 04:17 Cholesterol 292 mg/dL (<200) H 06/27/24 04:17 HDL Cholesterol 53 mg/dL (40-60) 06/27/24 04:17 Cholesterol/HDL Ratio 5.51 06/27/24 04:17 Home Medications: Labetalol HCl [Trandate] 200 mg PO BID 06/26/24 Losartan Potassium 50 mg PO DAILY 06/26/24 Amlodipine [Norvasc*] 10 mg PO BEDTIME #30 tab 06/28/24 New Medications: Amlodipine [Norvasc*] 10 mg PO BEDTIME #30 tab Physician Discharge Instructions: Yahir Mitchell was treated for sever high blood pressure and responded well to treatment. Please follow up with nephrology for further investigation for an underlying cause for this high blood pressure. Amlodipine was started and tolerated well, please start taking it at bedtime. 1. Please call and schedule a follow-up appointment with your PCP in 3-5 days - Please follow-up with your PCP for medication refills/adjustments 2. Please call and schedule a follow-up appointment with Dr. Frias, nephrology, in one week 3. Continue Renal diet, stay hydrated 4. No activity restrictions 5. Return to the ED if symptoms worsen New medications Amlodipine 10 mg p.o. at bedtime Diet: AHA Activity: Ad lorelei Followup: Irwin Frias MD [ACTIVE - CAN ADMIT] - 1-2 Weeks Allyn Mcintyre MD [Primary Care Provider] - 1 Week
[2024-06-28 12:07] LABS: Anion Gap 12.6 mEq/L (5.0-15.0); Potassium 3.6 mEq/L (3.5-5.1)
[2024-06-28 13:27] VITALS: BP 148/90; TEMP 97.9
[2024-06-28 14:04] VITALS: O2SAT 98
--- NOTE | 2024-06-28 16:21 | PN ---
Date of Progress Note: 06/28/2024 Subjective: The patient was admitted to the hospital with urgent hypertension, gastroenteritis. The patient underwent CT with contrast yesterday. The patient had worsening kidney function today. Blood pressure has been stabilized. Physical Examination: Vital Signs: Blood pressure 141/93, pulse of 79, afebrile. Chest: Clear to auscultation. Heart: S1, S2 regular. Abdomen: Soft, nontender. Extremities: No edema. Neurologic: Alert. No focality. Laboratory Data: Hemoglobin 15.4, WBC 7.5. Sodium 135, potassium 3.8, bicarb 27, BUN 27, creatinine 1.8. GFR 37. Calcium 10.2. Phosphorus 5.4, magnesium 2.4. Uric acid of 7. Cortisol of 12. TSH 1.3. Urinalysis PC ratio 0.1, positive for infection. Aldosterone and plasma renin activity are still pending. Renal ultrasound, normal size kidney. No sign for renal artery stenosis, 10.6/10.2. Assessment And Plan: 1. Acute kidney injury secondary to contrast induced nephropathy. I started the patient on hydration. Given the worsening kidney function, I am going to hold the ARB, losartan, and we will follow up. We will repeat lab in the afternoon. If kidney function improved, patient is okay to be relieved on amlodipine, labetalol, and spironolactone 25 mg. To follow up in the office in 2-3 weeks. To follow up the lab. Otherwise, we will watch for another day. 2. Hypertension. Workup for secondary hypertension still pending. The patient is okay for discharge planning. We will follow up workup as outpatient and we will monitor. 3. Hypokalemia, status post supplement, recovered, resolved. 4. We are still working up for hyperaldosteronism. 5. Hyponatremia, possible secondary to hyperaldosteronism. Workup is still pending. No symptoms no need for supplement for the time being. Time spent examining the patient [id number] reviewing the data and clapper and the radiology placing order discussing the case with the patient discussing the case with the merchandise flow team member including hospitalist and nursing staff more than 75 minutes ANDRE Voice ID: [id number] Report ID: [id number] BLAINE
[2024-06-28] MEDS ORDERED: AMLODIPINE 10 MG TAB PO SCH (21:00)
[2024-06-29] MEDS ORDERED: SPIRONOLACTONE 25 MG TABLET PO SCH (09:00)
--- NOTE | 2024-06-29 13:36 | EKG ---
Test Date: 2024-06-27 Test Time: 03:10:15 Shuttle Driver: ARANZA MEASUREMENT RESULTS: Intervals: Rate: 69 [place]: 144 QRSD: 102 QT: 394 QTc: 422 [place]: P: 47 [place]: 144 QRS: 15 T: 46 INTERPRETIVE STATEMENTS: Normal sinus rhythm Biatrial enlargement Left ventricular hypertrophy Nonspecific T wave abnormality Abnormal ECG Compared to ECG 06/27/2024 03:07:26 No significant changes Electronically Signed On 06-29-24 13:30:29 CDT by Fracisco Horton
[2024-07-05 17:35] LABS: PRA,LC/MS/MS 1.62 ng/mL/h (0.25-5.82)
== END 2024-06-28 15:08 | disposition home or self-care (01) | DRG 305 ==
LOC: ER 08:09 → ERHOLD 13:48 → 2ND 14:19
PROVIDERS: ADMIT Internal Medicine; ATTEND Internal Medicine
DX: I16.1 Hypertensive emergency (principal); N17.9 Acute kidney failure, unspecified; E87.1 Hypo-osmolality and hyponatremia; E87.6 Hypokalemia; I10 Essential (primary) hypertension; E78.5 Hyperlipidemia, unspecified; K52.9 Noninfective gastroenteritis and colitis, unspecified; E26.9 Hyperaldosteronism, unspecified; F17.200 Nicotine dependence, unspecified, uncomplicated; Z79.899 Other long term (current) drug therapy
CPT/HCPCS: 36415; 70450; 70551; 71045; 71275; 80048; 80061; 80069; 80076; 81001; 81025; 82088; 82533; 82550; 82570; 82947; 83735; 83835; 83880; 83935; 84100; 84132; 84156; 84244; 84300; 84439; 84443; 84484; 84550; 85025; 85379; 87077; 87086; 87088; 87186; 93005; 93306; 93975; 96374; 99285; J0360; J1644; J3480; J7120; Q9967